=== PATIENT | female | born 1955 | race Caucasian/White ===

== ENCOUNTER 2017-02-20 06:36 | Inpatient (IN) | payer MEDICAID ==
[~2017-02-20] VITALS: Ht 167.6 cm; Wt 108.0 kg
[~2017-02-20 06:36] MED LIST: ACET-1600 PO; AMLO10TA2 PO; AMOX-291 PO; AMOX1TAB12 PO; ANAS1TAB3 PO; CEPH-368 PO; CITA40TA5 PO; CLOP75TA PO; DIPH25CA61 PO; DULO60CA7 PO; FLUO20CA19 PO; GABA300C10 PO; LISI40TA PO; LORA10TA62 PO; LORA1TAB PO; MORP15TA3 PO; NONE PER PATIENT; ONDA8TAB9 PO; OXYB15TA PO; OXYC1TAB8 PO; PROC10TA78 PO; PROC5TAB40 PO; SENN1TAB7 PO; SIMV10TA3 PO; SUMA50TA3 PO; TURKEY TAIL MUSHROOM PO; TURM500C7 PO
[2017-02-20] MEDS ORDERED: SODIUM CHLORIDE FLUSH 10ML SYR IVF ONE (07:30)
[2017-02-20 07:48] LABS: ASPARTATE AMINO TRANSFERASE 28 U/L (15-37); BLOOD UREA NITROGEN 22 mg/dL (7-18)
[2017-02-20] MEDS ORDERED: NALOXONE 0.4 MG/ML, 1ML ONE ×2 (07:52→13:29)
[2017-02-20] MEDS ORDERED: NALOXONE 0.4 MG/ML, 1ML IVPush ONE ×2 (08:00→13:30)
[2017-02-20] MEDS ORDERED: MORP15TA PO (08:41)
[2017-02-20] MEDS ORDERED: BISACODYL 10 MG SUPP PR PRN (13:30)
[2017-02-20] MEDS ORDERED: POLYETHYLENE GLYCOL 17 GM PACKET PO PRN (13:30)
[2017-02-20] MEDS ORDERED: DOCUSATE 100 MG CAPSULE PO PRN (13:30)
[2017-02-20 14:04] LABS: ABG COLLECTION SITE RIGHT RADIAL; COLLATERAL CIRCULATION TESTING NORMAL
[2017-02-20 14:38] VITALS: BP 107/57
[2017-02-20] MEDS: SODIUM CHLORIDE 0.9% 1,000 ML IV SCH ×2 (16:37→21:24)
[2017-02-20] MEDS: HEPARIN 5,000 UNITS/ML, 1ML SQ SCH (16:38)
[2017-02-20 20:00] VITALS: BP 127/64
[2017-02-20] MEDS ORDERED: AMLODIPINE BESYLATE 10 MG PO SCH (21:00)
[2017-02-20] MEDS ORDERED: SIMVASTATIN 10 MG TABLET PO SCH (21:00)
[2017-02-20] MEDS ORDERED: OXYBUTYNIN CHLORIDE 15 MG PO SCH (21:00)
[2017-02-20] MEDS ORDERED: ANASTROZOLE 1 MG TABLET PO SCH (21:00)
[2017-02-20] MEDS ORDERED: CITALOPRAM HYDROBROMIDE 40 MG PO SCH (21:00)
[2017-02-20] MEDS ORDERED: LISINOPRIL 40 MG PO SCH (21:00)
[2017-02-21] MEDS: HEPARIN 5,000 UNITS/ML, 1ML SQ SCH ×2 (01:00→09:08)
[2017-02-21 02:00] VITALS: BP 111/65
[2017-02-21 05:51] LABS: BLOOD UREA NITROGEN 17 mg/dL (7-18)
[2017-02-21 05:54] LABS: ASPARTATE AMINO TRANSFERASE 28 U/L (15-37)
[2017-02-21 07:14] VITALS: BP 131/69
[2017-02-21] MEDS ORDERED: CLOPIDOGREL 75 MG TABLET PO SCH (09:00)
== END 2017-02-21 12:30 | disposition home or self-care (01) | DRG 917 ==
LOC: ED 07:18 → EDIP 12:44 → 4EST 14:21
PROVIDERS: ADMIT Internal Medicine; ATTEND Internal Medicine
PROC: 0T9B70Z Drainage of Bladder with Drainage Device, Via Natural or Artificial Opening (ICD-10-PCS; principal; 2017-02-20)
DX: T40.601A Poisoning by unspecified narcotics, accidental (unintentional), initial encounter (principal); J96.01 Acute respiratory failure with hypoxia; I69.351 Hemiplegia and hemiparesis following cerebral infarction affecting right dominant side; N17.9 Acute kidney failure, unspecified; K57.92 Diverticulitis of intestine, part unspecified, without perforation or abscess without bleeding; F11.20 Opioid dependence, uncomplicated; I10 Essential (primary) hypertension; F32.9 Major depressive disorder, single episode, unspecified; G62.0 Drug-induced polyneuropathy; T45.1X5A Adverse effect of antineoplastic and immunosuppressive drugs, initial encounter; D72.829 Elevated white blood cell count, unspecified; S00.81XA Abrasion of other part of head, initial encounter; W19.XXXA Unspecified fall, initial encounter; F17.210 Nicotine dependence, cigarettes, uncomplicated; G43.909 Migraine, unspecified, not intractable, without status migrainosus; Z92.21 Personal history of antineoplastic chemotherapy; Z85.3 Personal history of malignant neoplasm of breast; Z92.3 Personal history of irradiation; Y92.009 Unspecified place in unspecified non-institutional (private) residence as the place of occurrence of the external cause; Z79.899 Other long term (current) drug therapy; Y93.89 Activity, other specified; Y99.8 Other external cause status
CPT/HCPCS: 36415; 36600; 70450; 71010; 76700; 80053; 81001; 82803; 83735; 84100; 85025; 85610; 96374; 96375; J1644; J2310; J7030

== ENCOUNTER 2017-07-19 16:09 | Emergency (ER) | payer MEDICAID ==
[~2017-07-19] VITALS: Ht 167.6 cm; Wt 104.1 kg
[~2017-07-19 16:09] MED LIST changes: +MORP15TA PO
[2017-07-19 16:18] VITALS: BP 156/97
== END 2017-07-19 17:55 | disposition home or self-care (01) ==
LOC: ED 17:45
DX: K08.89 Other specified disorders of teeth and supporting structures (principal); I10 Essential (primary) hypertension; Z88.6 Allergy status to analgesic agent
CPT/HCPCS: 99283

== ENCOUNTER 2019-07-11 10:58 | Emergency (ER) | payer MEDICARE ==
[~2019-07-11] VITALS: Ht 167.6 cm; Wt 112.3 kg
[~2019-07-11 10:58] MED LIST changes: -AMLO10TA2 PO; +AMLO10TA8 PO; -ANAS1TAB3 PO; +ANAS1TAB49 PO; +CALC-451 PO; +CEPH-376 PO; +DIAZ5TAB4 PO; +DIPH12.532 PO; +FERR324T5 PO; +MORP-29 PO; -MORP15TA3 PO; +OXYC-302 PO; +SENN-177 PO; -SENN1TAB7 PO; +SUMA50TA4 PO
--- NOTE | 2019-07-11 12:48 | NUR ---
PT UP TO BEDSIDE COMMODE. AWAITING CT. RESTING IN GURNEY WITH AT BEDSIDE. PT ON MONITOR.
--- NOTE | 2019-07-11 13:17 | NUR ---
PT RETURNED FROM CT
--- NOTE | 2019-07-11 14:23 | NUR ---
PT RETURNED FROM XRAY. AWAITING SUTURES FROM
[2019-07-11] MEDS ORDERED: ACETAMINOPHEN 500 MG TABLET ONE (14:56)
[2019-07-11] MEDS ORDERED: ACETAMINOPHEN 500 MG TABLET PO ONE (15:00)
[2019-07-11 15:30] VITALS: BP 109/64
[2019-07-11] MEDS ORDERED: LIDOCAINE 1%, 10ML INFIL ONE (15:30)
[2019-07-11] MEDS ORDERED: LIDOCAINE-MPF 1%, 5ML ONE (15:37)
--- NOTE | 2019-07-11 16:09 | NUR ---
MD AT BEDSIDE FOR SUTURES
== END 2019-07-11 17:20 | disposition home or self-care (01) ==
LOC: ED 17:10
DX: S01.311A Laceration without foreign body of right ear, initial encounter (principal); Z87.891 Personal history of nicotine dependence; W18.30XA Fall on same level, unspecified, initial encounter; Y93.89 Activity, other specified; Y92.091 Bathroom in other non-institutional residence as the place of occurrence of the external cause; Y99.8 Other external cause status
CPT/HCPCS: 12014; 69000; 70450; 99284

== ENCOUNTER 2019-07-13 08:30 | Emergency (ER) | payer MEDICARE ==
[~2019-07-13] VITALS: Ht 167.6 cm; Wt 112.0 kg
[2019-07-13 08:33] VITALS: BP 141/68
[2019-07-13] MEDS ORDERED: HYDROcodone/APAP 5/325 TABLET PO ONE (10:30)
[2019-07-13] MEDS ORDERED: HYDROcodone/APAP 5/325 TABLET ONE (10:36)
[2019-07-13] MEDS ORDERED: NEOSPORIN OINT. PKT 1 PACKET ONE (10:43)
== END 2019-07-13 11:03 | disposition home or self-care (01) ==
LOC: ED 10:51
DX: S01.311D Laceration without foreign body of right ear, subsequent encounter (principal); I10 Essential (primary) hypertension; X58.XXXD Exposure to other specified factors, subsequent encounter
CPT/HCPCS: 99282; 99283

== ENCOUNTER 2019-09-19 09:40 | Day surgery (SDC) | payer MEDICARE ==
[~2019-09-19] VITALS: Ht 167.6 cm; Wt 116.5 kg
[~2019-09-19 09:40] MED LIST changes: +CHOL10003 PO; +CLINDAMYCIN 150 MG/ML, 6ML ONE; +CYCL5TAB PO; +LIDOCAINE/PF 1%-EPI 1:200K, 30 ML ONE; -OXYB15TA PO; +OXYB15TA18 PO; +PANT40TA5 PO; +SERT50TA28 PO; +SIMV10TA18 PO; -SIMV10TA3 PO
[2019-09-19] MEDS ORDERED: LACTATED RINGERS 1,000 ML IV ONE (10:03)
[2019-09-19 10:39] VITALS: BP 135/76
[2019-09-19] MEDS ORDERED: MIDAZOLAM 1 MG/ML, 2ML ONE (11:00)
[2019-09-19] MEDS ORDERED: FENTANYL PF 250 MCG/5ML ONE (11:00)
[2019-09-19] MEDS ORDERED: EPHEDRINE 50 MG/ML, 1ML ONE (11:45)
[2019-09-19] MEDS ORDERED: OXYcodone 5 MG/5 ML ORAL.SOL UDC PO PRN (12:30)
[2019-09-19] MEDS ORDERED: hydrALAzine 20 MG/ML, 1ML IV PRN (12:30)
[2019-09-19] MEDS ORDERED: ACETAMINOPHEN 325 MG TABLET PO PRN (12:30)
[2019-09-19] MEDS ORDERED: MEPERIDINE/PF 25MG/ML,1ML IVPush PRN (12:30)
[2019-09-19] MEDS ORDERED: PROMETHAZINE 25 MG/ML, 1ML IV PRN (12:30)
[2019-09-19] MEDS ORDERED: HYDROmorphone 2 MG/ML, 1ML IVPush PRN (12:30)
[2019-09-19] MEDS ORDERED: FENTANYL PF 100 MCG/2ML IV PRN (12:30)
[2019-09-19] MEDS ORDERED: LIDOCAINE-MPF 2% ,5ML ONE (12:47)
[2019-09-19] MEDS ORDERED: ONDANSETRON 2MG/ML, 2ML ONE (12:47)
[2019-09-19] MEDS ORDERED: ROPIvacaine/PF 0.5%, 30 ML ONE (12:47)
[2019-09-19] MEDS ORDERED: CEFAZOLIN 1,000 MG ONE (12:47)
[2019-09-19] MEDS ORDERED: ROCURONIUM 10MG/ML,5ML ONE (12:47)
[2019-09-19] MEDS ORDERED: DEXAMETHASONE 4 MG/ML, 1ML ONE (12:47)
[2019-09-19] MEDS ORDERED: PROPOFOL 10 MG/ML, 20ML ONE (12:47)
[2019-09-19] MEDS ORDERED: SUGAMMADEX 200 MG/2 ML IVPush ONE (12:47)
[2019-09-19] MEDS ORDERED: ALBUTEROL SULFATE 2.5 MG/3 ML ONE (13:38)
== END 2019-09-19 17:48 | disposition home or self-care (01) ==
LOC: OUT 09:40
PROVIDERS: ATTEND Orthopaedic Surgery
DX: S46.012A Strain of muscle(s) and tendon(s) of the rotator cuff of left shoulder, initial encounter (principal); S43.432A Superior glenoid labrum lesion of left shoulder, initial encounter; M75.42 Impingement syndrome of left shoulder; M65.812 Other synovitis and tenosynovitis, left shoulder; M19.012 Primary osteoarthritis, left shoulder; I69.351 Hemiplegia and hemiparesis following cerebral infarction affecting right dominant side; I10 Essential (primary) hypertension; K21.9 Gastro-esophageal reflux disease without esophagitis; F32.9 Major depressive disorder, single episode, unspecified; E66.01 Morbid (severe) obesity due to excess calories; Z79.891 Long term (current) use of opiate analgesic; Z79.899 Other long term (current) drug therapy; Z88.8 Allergy status to other drugs, medicaments and biological substances; Z90.710 Acquired absence of both cervix and uterus; Z98.890 Other specified postprocedural states; Z87.891 Personal history of nicotine dependence; X58.XXXA Exposure to other specified factors, initial encounter; Y93.89 Activity, other specified; Y92.89 Other specified places as the place of occurrence of the external cause; Y99.8 Other external cause status
CPT/HCPCS: 29823; 29826; 29827; 64415; C1713; J0690; J1100; J2250; J2405; J2704; J2795; J3010; J3490; J7120